=== PATIENT | female | born 1990 | race American Indian/Alaskan Native ===

== ENCOUNTER 2019-05-25 10:02 | Emergency (ER) | payer MEDICAID, OTHER ==
[2019-05-25 11:19] VITALS: BP 152/94
--- NOTE | 2019-05-25 11:19 | Emergency Department Report ---
Blank Doc - Documentation Documentation: 29-year-old female that presents with right flank pain. This initial assessment/diagnostic orders/clinical plan/treatment(s) is/are subject to change based on patient's health status, clinical progression and re- assessment by fellow clinical providers in the ED. Further treatment and workup at subsequent clinical providers discretion. Patient/guardians urged not to elope from the ED as their condition may be serious if not clinically assessed and managed. Initial orders include: 1- Patient sent to [facility] for further evaluation and treatment 2- UA
[2019-05-25 11:58] LABS: Bilirubin,Urine NEG (Negative); Blood,Urine SM (Negative); Color,Urine Yellow (Yellow); Mucus,Urine FEW /HPF; Protein,Urine <15 mg/dL mg/dL (Negative); Urobilinogen,Urine < 2.0 mg/dL (<2.0); WBC,Urine < 1.0 /HPF (0.0-6.0)
[2019-05-25 12:19] LABS: HCG Qualitative,Urine Negative (Negative)
--- NOTE | 2019-05-25 12:42 | Emergency Department Report ---
Chief Complaint: Back Pain/Injury Stated Complaint: RT SIDE BACK PAIN Time Seen by Provider: 05/25/19 11:18 - HPI History of Present Illness: 29-year-old female presents to the emergency room complaining of right middle back pain 3-4 days. Patient reports that his got worse in the last day. Patient states that the pain is worse with movement. Patient reports it is intermittent. Patient reports that the ibuprofen has helped with her pain but Advil didn't she denies any dysuria no nausea no vomiting no chest pain shortness of breathing. - Exam Vital Signs: Vital Signs 05/25/19 11:18 Temperature 98.3 F Pulse Rate 79 Respiratory 18 Rate Blood Pressure 152/94 O2 Sat by Pulse 100 Oximetry Physical Exam: Gen: alert oriented NAD Cardic: regular rate and rhythm no murmurs appreciated Resp: Clear to auscultation bilateral no wheezing no rales or rhonchi. Abdomen: Soft nontender nondistended normal bowel sounds. Back: Range of motion no cervical or vertebral tenderness no CVA tenderness MSE screening note: Focused history and physical exam performed. Due to findings the following was ordered: ED Disposition for MSE Clinical Impression: Back pain Disposition: DC-01 TO HOME OR SELFCARE Is pt being admited?: No Does the pt Need Aspirin: No Condition: Stable Instructions: Acute Low Back Pain (ED) Additional Instructions: Urinalysis is negative for any infection. Negative test. Currently has had no entries for no x-rays are necessary. I recommend feet continue with ibuprofen and follow up with her primary care provider. Referrals: AYAH ORR MD [Staff Physician] - 3-5 Days BECCA SEWELL MD [Referring] - 3-5 Days Forms: Work/School Release Form(ED)
== END 2019-05-25 12:56 | disposition home or self-care (01) ==
LOC: ED 10:02
DX: M54.9 Dorsalgia, unspecified (principal)
CPT/HCPCS: 81001; 81025